=== PATIENT | male | born 1980 | race Caucasian/White ===

== ENCOUNTER 2018-09-03 04:47 | Inpatient (IN) | payer OTHER ==
--- NOTE | 2018-09-03 05:13 | PDOC ---
History of Present Illness - History of Present Illness Initial Comments: 09/03/18 05:26 The patient is a 38 year old male with no significant PMH who presents for evaluation of fevers and cough. The patient reports a 5 day history of subjective fevers with a non-productive cough associated with dizziness. He notes that his symptoms have been improving, but persistent prompting his presentation to the ED for further evaluation. He also reports some mild intermittent left sided chest pain that occurs with his cough as well. He notes that he has had similar symptoms in the past and had been diagnosed with bronchitis at that time. He otherwise denies nausea, vomiting, abdominal pain, or changes with urination or bowel movements. <Jacob Hadley - Last Filed: 09/03/18 06:52> <Abdirashid Gleason - Last Filed: 09/03/18 09:05> - General Stated Complaint: FEVER,PAIN,DIZZINESS Time Seen by Provider: 09/03/18 05:12 Past History - Past Medical History COPD: No DVT: No Diabetes: No HTN: No Hypercholesterolemia: No - Immunization History Immunization Up to Date: No - Suicide/Smoking/Psychosocial Hx Smoking Status: No Smoking History: Current some day smoker Number of Cigarettes Smoked Daily: 0 'Breaking Loose' booklet given: 10/11/13 Hx Alcohol Use: No Drug/Substance Use Hx: No <Jacob Hadley - Last Filed: 09/03/18 06:52> <Abdirashid Gleason - Last Filed: 09/03/18 09:05> - Past Medical History Allergies/Adverse Reactions: Allergies Allergy/AdvReac Type Severity Reaction Status Date / Time No Known Allergies Allergy Verified 09/03/18 05:27 Home Medications: Ambulatory Orders No Home Medications 0 dose .ROUTE UTDICT 09/11/12 Sulfamethoxazole/Trimethoprim [Bactrim *Ds*] 1 tab PO BID #14 tablet 07/11/16 predniSONE [Deltasone -] 40 mg PO DAILY #14 tablet 07/11/16 Review of Systems - Review of Systems Comments:: 09/03/18 05:29 Constitutional: Fevers, chills, No fatigue, malaise HEENT: No Rhinorrhea, nasal congestion, visual changes Cardiovascular: Chest pain. No syncope, palpitations, lightheadedness Respiratory: Cough. No SOB, Hemoptysis, Gastrointestinal: No Abdominal pain, Nausea, Vomiting, Constipation, Diarrhea, Melena Genitourinary: No Dysuria, Frequency, Urgency, Hesitancy, Hematuria, Flank pain Musculoskeletal: No Myalgia, arthralgia Skin: No rashes, itching, bruising, pallor Neurologic: No Headache, Dizziness, Numbness, Weakness, or Tingling Psychiatric: No Hallucinations. No SI or HI <Jacob Hadley - Last Filed: 09/03/18 06:52> *Physical Exam - Physical Exam Comments: 09/03/18 05:30 General Appearance: Nourished. No Apparent Distress HEENT: No Pharyngeal Erythema, Tonsillar Exudate, Tonsillar Erythema Neck: No Cervical Lymphadenopathy Respiratory/Chest: Lungs Clear, Normal Breath Sounds. No Crackles, Rales, Rhonchi, Wheezing Cardiovascular: Regular Rhythm, Regular Rate. No Murmur, Gallops, Rubs Gastrointestinal/Abdominal: Normal Bowel Sounds, Soft. No Guarding, Rebound, Tenderness Musculoskeletal: No CVA Tenderness Extremity: Normal Capillary Refill Integumentary: Normal Color, Dry, Warm Neurologic: Fully Oriented, Alert, Normal Mood/Affect, Normal Response, <Jacob Hadley - Last Filed: 09/03/18 06:52> - Vital Signs Last Vital Signs Temp Pulse Resp BP Pulse Ox 99.2 F 112 H 19 103/76 09/03/18 05:00 09/03/18 05:00 09/03/18 05:00 09/03/18 05:00 <Abdirashid Gleason - Last Filed: 09/03/18 09:05> ED Treatment Course - LABORATORY CBC & Chemistry Diagram: 09/03/18 05:39 09/03/18 05:39 <Jacob Hadley - Last Filed: 09/03/18 06:52> - LABORATORY CBC & Chemistry Diagram: 09/03/18 05:39 09/03/18 05:39 - ADDITIONAL ORDERS Additional order review: Laboratory Results 09/03/18 05:39 Sodium 134 L Potassium 3.5 Chloride 101 Carbon Dioxide 23 Anion Gap 10 BUN 19 H Creatinine 1.3 Creat Clearance w eGFR > 60 Random Glucose 127 H Calcium 8.3 L Total Bilirubin 1.3 H AST 68 H ALT 80 H Alkaline Phosphatase 182 H Creatine Kinase 261 Creatine Kinase Index 0.3 CK-MB (CK-2) < 1.0 Troponin I 0.13 H Total Protein 7.0 Albumin 3.1 L Lipase 492 H 09/03/18 05:39 RBC 5.24 MCV 87.8 MCHC 33.6 RDW 13.8 MPV 10.8 Neutrophils % 79.5 Lymphocytes % 9.4 Monocytes % 10.6 H Eosinophils % 0.1 Basophils % 0.4 - Medications Given in the ED: ED Medications Discontinued Medications Generic Name Dose Route Start Last Admin Trade Name Freq PRN Reason Stop Dose Admin Sodium Chloride 1,000 mls @ 1,000 mls/hr 09/03/18 05:37 09/03/18 06:16 Normal Saline - IV 09/03/18 06:36 1,000 mls/hr ASDIR STA Administration Ibuprofen 800 mg 09/03/18 05:21 09/03/18 06:16 Motrin - PO 09/03/18 05:22 800 mg ONCE ONE Administration <Abdirashid Gleason - Last Filed: 09/03/18 09:05> Medical Decision Making - Medical Decision Making 09/03/18 05:31 The patient is a 38 year old male with no significant PMH who presents for evaluation of fevers and cough. Given the patient's history and physical exam, we will obtain a chest plain film to evaluate further for infectious etiologies. We will also obtain a cbc, cmp, troponin, lipase, and ekg to evaluate further. We will treat the patient with ibuprofen and iv fluids and continue to monitor and reassess while here in the ED. 09/03/18 06:51 CBC demonstrates an elevated wbc to 13. CMP demonstrates elevated LFTs and t.bili. We will obtain a gallbladder US to evaluate further and continue to monitor and reassess. 09/03/18 06:59 Patient signed out to the day team pending troponin, lipase, chest plain film, ekg, and gallbladder US. <Jacob Hadley - Last Filed: 09/03/18 06:52> *DC/Admit/Observation/Transfer <Jacob Hadley - Last Filed: 09/03/18 06:52> - Discharge Dispostion Decision to Admit order: Yes <Abdirashid Gleason - Last Filed: 09/03/18 09:05> Diagnosis at time of Disposition: Abnormal LFTs Pneumonia Qualifiers: Pneumonia type: due to unspecified organism Laterality: left Lung location: upper lobe of lung Qualified Code(s): J18.1 - Lobar pneumonia, unspecified organism - Discharge Dispostion Condition at time of disposition: Fair - Referrals Referrals: Omar Cramer MD [Primary Care Provider] - - Patient Instructions - Post Discharge Activity
[2018-09-03] MEDS ORDERED: IBUPROFEN 400 MG TABLET (FP) PO ONE ×2 (05:21→06:12)
[2018-09-03] MEDS ORDERED: SODIUM CHLORIDE 1,000 ML IV STA (05:37)
[2018-09-03 05:53] LABS: BASO % 0.4 % (0-2.0); EOS % 0.1 % (0-4.5); RBC 5.24 M/mm3 (4.00-5.60); RDW 13.8 % (11.9-15.9)
[2018-09-03 06:03] LABS: HEMOGLOBIN 15.5 GM/dL (11.7-16.9); LYMPH % 9.4 % (8-40); MCH 29.5 pg (25.7-33.7); MCHC 33.6 g/dl (32.0-35.9); MEAN CELL VOLUME 87.8 fl (80-96); MEAN PLT VOLUME 10.8 fl (7.5-11.1); MONO % 10.6 % (3.8-10.2); NEUT % 79.5 % (42.8-82.8); PLATELET COUNT 126 K/MM3 (134-434); WHITE BLOOD COUNT 13.7 K/mm3 (4.0-10.0)
[2018-09-03 06:16] LABS: ALBUMIN 3.1 g/dl (3.4-5.0); ALK PHOS 182 U/L (45-117); ANION GAP 10 MMOL/L (8-16); BILIRUBIN,TOTAL 1.3 mg/dL (0.2-1); BLOOD UREA NITROGEN 19 mg/dL (7-18); CALCIUM 8.3 mg/dL (8.5-10.1); CHLORIDE 101 mmol/L (98-107); CO2 23 mmol/L (21-32); CREATININE 1.3 mg/dL (0.55-1.3); GLUCOSE,RANDOM 127 mg/dL (74-106); POTASSIUM 3.5 mmol/L (3.5-5.1); SGOT/AST 68 U/L (15-37); SGPT/ALT 80 U/L (13-61); SODIUM 134 mmol/L (136-145)
--- NOTE | 2018-09-03 06:42 | PDOC ---
Attending Attestation - Resident Resident Name: Jacob Hadley - ED Attending Attestation I have performed the following: I have examined & evaluated the patient, The case was reviewed & discussed with the resident, I agree w/resident's findings & plan, Exceptions are as noted - HPI HPI: 09/03/18 06:35 The patient is a 38 year old male, with no significant past medical history, who presents to the emergency department with 5 days of nonproductive cough and subjective fevers. The patient also endorses intermittent left sided chest pain when coughing. Denies SOB. Pt endorses intermittent LUQ pain but denies any currently. He denies any recent nausea, vomit, diarrhea or constipation. He denies any recent dysuria, frequency, urgency or hematuria. Allergies: NKDA Past surgical history: None reported. Primary Care Physician: - Physicial Exam PE: 09/03/18 06:42 "GENERAL: Awake, alert, and fully oriented, in no acute distress. HEAD: No signs of trauma EYES: PERRLA, EOMI, sclera anicteric, conjunctiva clear ENT: Auricles normal inspection, hearing grossly normal, nares patent, oropharynx clear without exudates. Moist mucosa NECK: Nontender, no stepoffs, Normal ROM, supple, no lymphadenopathy, JVD, or masses LUNGS: Breath sounds equal, clear to auscultation bilaterally. No wheezes, and no crackles HEART: Regular rate and rhythm, normal S1 and S2, no murmurs, rubs or gallops ABDOMEN: Soft, nontender, normoactive bowel sounds. No guarding, no rebound. No masses EXTREMITIES: Normal range of motion, no edema. No clubbing or cyanosis. No cords, erythema, or tenderness NEUROLOGICAL: Cranial nerves II through XII intact. 5/5 strength and sensation in all extremities, Normal speech, normal gait, normal cerebellar function SKIN: Warm, Dry, normal turgor, no rashes or lesions noted. - Medical Decision Making 09/03/18 06:43 38 M with fever, cough, and L sided chest pain. Likely viral URI vs PNA. - Labs, trop - EKG - CXR 09/03/18 06:52 Labs notable for mild transaminitis Will obtain RUQ sono 09/03/18 07:36 Pt signed out to oncoming team, pending US, labs, and re-evaluation
[2018-09-03 07:30] LABS: LIPASE 492 U/L (73-393)
[2018-09-03] MEDS ORDERED: SODIUM CHLORIDE 500 ML IV STA (08:22)
--- NOTE | 2018-09-03 12:03 | PN ---
Progress Note (short form) - Note Progress Note: ID Consult dictated JESSE community acquired vs. atypical pneumonia Elevated LFTs Hyponatremia Elevated lipase Obtain cultures, legionella ag Empiric levaquin 750mg q 24h Declines HIV testing
--- NOTE | 2018-09-03 12:45 | CONS ---
DATE OF CONSULTATION: DATE OF DICTATION: 09/03/2018 HISTORY OF PRESENT ILLNESS: The patient is a 38-year-old healthy male who was evaluated for left upper lobe pneumonia. The patient states he was well until Wednesday, August 29, 2018 when he developed the onset of fever, chills, a cough productive of yellowish sputum, left-sided pleuritic-type chest pain and epigastric pain. He presented to the emergency room where a chest x-ray showed a left upper lobe infiltrate. He was empirically treated with Levaquin. No blood cultures were obtained. The patient denies any ill contacts. He lives at home with his and children, who are all well. No one has a respiratory tract illness. 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 He denies any recent travel or antibiotic therapy. He smokes a hookah. He denies illicit drug use or risk factors for HIV. His status is not known. He has not received influenza or pneumococcal vaccines. PAST MEDICAL HISTORY: Negative. ALLERGIES: No known allergies. MEDICATIONS: None. LABORATORY DATA: White count 13.7, BUN 19, creatinine 1.3, sodium 134, total bilirubin 1.3, alkaline phosphatase 182, AST 68. His lipase is 492. A chest x-ray shows left upper lobe infiltrate. PHYSICAL EXAMINATION: General: The patient is awake and alert. He is not acutely toxic appearing. No acute respiratory distress. Vital Signs: Temperature 97.5, T-max 99.2, blood pressure 103/67, pulse 87 and regular, respirations 18 per minute. HEENT:: Sclerae anicteric. Oropharynx shows no injection or exudate. Neck: Supple. No palpable nodes. Heart: Heart sounds S1, S2. Lungs: A few crepitations in the left mid-lung field. Abdomen: Soft. No tenderness is elicited. Extremities: Negative for edema. Skin: No rashes noted. IMPRESSION: 1. Left upper lobe community-acquired vs. atypical pneumonia. 2. Elevated liver enzymes. 3. Hyponatremia. 4. Azotemia. PLAN: 1. Obtain blood culture, sputum culture, urine Legionella and pneumococcal antigens. 2. We will continue Levaquin 750 mg IV piggyback every 24 hours. 3. Obtain sonogram of the liver and gallbladder. 4. The patient declines HIV testing. LIYA INIGUEZ M.D. OLIVIER/[id number]
--- NOTE | 2018-09-03 14:50 | EKG ---
Test Reason : Blood Pressure : / mmHG Vent. Rate : 083 BPM Atrial Rate : 083 BPM P-R Int : 142 ms QRS Dur : 092 ms QT Int : 362 ms P-R-T Axes : 053 029 045 degrees QTc Int : 425 ms NORMAL SINUS RHYTHM INCOMPLETE RIGHT BUNDLE BRANCH BLOCK BORDERLINE ECG NO PREVIOUS ECGS AVAILABLE Confirmed by JOVITA TURNER MD ([id number]) on 09/03/2018 2:50:33 PM Referred By: Confirmed By:JOVITA TURNER MD
[2018-09-03 15:54] LABS: URINE APPEARANCE CLEAR; URINE BILIRUBIN NEGATIVE (<2.0 mg/dL); URINE COLOR AMBER; URINE GLUCOSE (UA) NEGATIVE (NEGATIVE); URINE KETONE 1+ (NEGATIVE); URINE LEUK ESTERASE NEGATIVE (NEGATIVE); URINE NITRITE NEGATIVE (NEGATIVE); URINE PROTEIN 1+ (NEGATIVE); URINE UROBILINOGEN 4.0 E.U/dl mg/dL (0.2-1.0)
[2018-09-03 17:01] LABS: EPI CELLS RARE /HPF (FEW); URINE MUCUS RARE
[2018-09-03] MEDS ORDERED: ACETAMINOPHEN 325 MG TABLET (FP) PO PRN ×2 (17:13)
[2018-09-03] MEDS ORDERED: ALBUTEROL SO4 2.5/IPRATROPIUM 0.5 INH SOL 3 ML VIAL.NEB. NEB PRN (17:23)
--- NOTE | 2018-09-03 17:25 | HP ---
Admitting History and Physical - Admission Chief Complaint: SOB. COUGH History of Present Illness: The patient is a 38 year old male with no significant PMH who presents for evaluation of fevers and cough. The patient reports a 5 day history of subjective fevers with a non-productive cough associated with dizziness. He notes that his symptoms have been improving, but persistent prompting his presentation to the ED for further evaluation. He also reports some mild intermittent left sided chest pain that occurs with his cough as well. He notes that he has had similar symptoms in the past and had been diagnosed with bronchitis at that time. He otherwise denies nausea, vomiting, abdominal pain, or changes with urination or bowel movements. History Source: Patient, Medical Record Limitations to Obtaining History: No Limitations - Smoking History Smoking history: Current some day smoker Have you smoked in the past 12 months: Yes Aproximately how many cigarettes per day: 0 - Alcohol/Substance Use Hx Alcohol Use: No Home Medications - Allergies Allergies/Adverse Reactions: Allergies Allergy/AdvReac Type Severity Reaction Status Date / Time No Known Allergies Allergy Verified 09/03/18 05:27 - Home Medications Home Medications: Ambulatory Orders NK [No Known Home Medication] 09/03/18 Review of Systems - Review of Systems Constitutional: reports: Chills Eyes: reports: No Symptoms HENT: reports: No Symptoms Neck: reports: No Symptoms Cardiovascular: reports: Shortness of Breath Respiratory: reports: Cough, SOB on Exertion Gastrointestinal: reports: No Symptoms Genitourinary: reports: No Symptoms Breasts: reports: No Symptoms Reported Musculoskeletal: reports: No Symptoms Integumentary: reports: No Symptoms Neurological: reports: No Symptoms Endocrine: reports: No Symptoms Hematology/Lymphatic: reports: No Symptoms Psychiatric: reports: No Symptoms Physical Examination Vital Signs: Vital Signs Temperature 98.7 F 09/03/18 15:44 Pulse Rate 94 H 09/03/18 15:44 Respiratory Rate 20 09/03/18 15:44 Blood Pressure 112/66 09/03/18 15:44 O2 Sat by Pulse Oximetry (%) 96 09/03/18 15:44 Labs: CBC, BMP 09/03/18 05:39 09/03/18 05:39 Imaging - Results Chest X-ray: Report Reviewed Problem List - Problems (1) Elevated troponin Assessment/Plan: -repeat trend -EKG-RBBB -Tele monitoring -Cardiology consult -Pt asymptomatic at this time -Cardiac history unknown Code(s): R74.8 - ABNORMAL LEVELS OF OTHER SERUM ENZYMES (2) Abnormal LFTs Assessment/Plan: -GI consult -Viral exposure? -Hepatitis profile ordered -Follow trend -U/D abdomen unremarkable Code(s): R94.5 - ABNORMAL RESULTS OF LIVER FUNCTION STUDIES (3) Pneumonia Assessment/Plan: -ID consult -Levaquin 750 mg IVPB daily -afebrile -Nasal O2 PRN, keep Spo2 >90% -Bronchodilators PRN for SOB Code(s): J18.9 - PNEUMONIA, UNSPECIFIED ORGANISM Qualifiers: Pneumonia type: due to unspecified organism Laterality: left Lung location: upper lobe of lung Qualified Code(s): J18.1 - Lobar pneumonia, unspecified organism (4) Elevated lipase Assessment/Plan: -repeat labs in AM -US abd unremarkable -GI consult Code(s): R74.8 - ABNORMAL LEVELS OF OTHER SERUM ENZYMES Assessment/Plan see problem list DVT prophylaxis self ambulatory
[2018-09-03 19:05] VITALS: BMI 28.0
[2018-09-03] MEDS ORDERED: FLU VACCINE QUAD 60 MCG/0.5 ML (MDV 18-19) IM ONE (19:05)
[2018-09-03] MEDS: SODIUM CHLORIDE 1,000 ML IV SCH (22:40)
[2018-09-04 06:43] LABS: BASO % 0.4 % (0-2.0); EOS % 0.5 % (0-4.5); HEMATOCRIT 42.6 % (35.4-49); HEMOGLOBIN 13.9 GM/dL (11.7-16.9); MCH 29.1 pg (25.7-33.7); MCHC 32.7 g/dl (32.0-35.9); MEAN CELL VOLUME 89.2 fl (80-96); MEAN PLT VOLUME 10.7 fl (7.5-11.1); MONO % 10.9 % (3.8-10.2); NEUT % 68.2 % (42.8-82.8); PLATELET COUNT 117 K/MM3 (134-434); RBC 4.78 M/mm3 (4.00-5.60); WHITE BLOOD COUNT 9.5 K/mm3 (4.0-10.0)
[2018-09-04 06:48] LABS: AMYLASE 61 U/L (25-115); ANION GAP 8 MMOL/L (8-16); BLOOD UREA NITROGEN 12 mg/dL (7-18); CALCIUM 8.2 mg/dL (8.5-10.1); CHLORIDE 108 mmol/L (98-107); CO2 24 mmol/L (21-32); CREATININE 0.9 mg/dL (0.55-1.3); GLUCOSE,RANDOM 80 mg/dL (74-106); LIPASE 361 U/L (73-393); POTASSIUM 3.9 mmol/L (3.5-5.1); SODIUM 140 mmol/L (136-145)
--- NOTE | 2018-09-04 08:40 | CON.GI ---
Consult Consult Specialty:: GI Referred by:: Caitlyn Ortiz NP Reason for Consultation:: Abnormal LFTs - History of Present Illness Chief Complaint: Chest pain, back pain, fever History of Present Illness: 38M admitted for evaluation of a few days of chest pain, cough, fevers and lower back pain. He has a JESSE infiltrate and is being treated for PNA. Asked to evaluate abnormal LFTs. He was also noted to have elevated troponins and initial lipase was elevated to 428. It is unclear why a lipase was drawn as he denies any abdominal pain. He denies known liver disease, family history of liver disease or autoimmune disease. He denies sexual promiscuity and states being in a monogamous relationship with his . He denies recent travel or sick contact. He denies the use of any recent OTC medications including APAP and denies herbal supplementation. He denies IVDA. He denies any change in bowel habits. ABD US revealed a partially contrasted thick walled gallbladder without evidence of gallstones. The biliary tract was non-dilated. He complains of pain along the left lower ribs over the last 2 years. - History Source History Provided By: Patient, Medical Record Limitations to Obtaining History: No Limitations - Past Medical History Additional Medical History: Denies - Past Surgical History Additional Surgical History: Denies - Alcohol/Substance Use Hx Alcohol Use: No History of Substance Use: reports: None - Smoking History Smoking history: Current some day smoker (Hookah and occasional cigarettes) Have you smoked in the past 12 months: No Aproximately how many cigarettes per day: 0 - Social History Usual Living Arrangement: With Spouse ADL: Independent Occupation: Works in [employer] Place of : Other ([place]) Came to [place]year[place] 2000 History of Recent Travel: No Home Medications - Allergies Allergies/Adverse Reactions: Allergies Allergy/AdvReac Type Severity Reaction Status Date / Time No Known Allergies Allergy Verified 09/03/18 05:27 - Home Medications Home Medications: Ambulatory Orders NK [No Known Home Medication] 09/03/18 Family Disease History - Family Disease History Family Disease History: Other: Father (Alive, healthy), Mother (Alive, healthy) , Brother (4, healthy), Sister (3, healthy), Son (1, healthy), Daughter (1, healthy) Other Family History: No family history of colorectal cancer or other GI malignancy. No family history of liver disease Review of Systems - Review of Systems Constitutional: denies: Unintentional Wgt. Loss Cardiovascular: reports: Chest Pain Respiratory: reports: Cough, SOB Gastrointestinal: denies: Abdominal Pain, Diarrhea, Melena, Nausea, Rectal Bleeding, Vomiting Musculoskeletal: reports: Back Pain (lower back) Physical Exam-GI Vital Signs: Vital Signs Temperature 97.8 F 09/04/18 05:30 Pulse Rate 78 09/04/18 05:30 Respiratory Rate 16 09/04/18 05:30 Blood Pressure 116/48 L 09/04/18 05:30 O2 Sat by Pulse Oximetry (%) 96 09/03/18 21:00 Constitutional: Yes: Calm Eyes: No: Sclera Icterus Cardiovascular: Yes: Regular Rate and Rhythm. No: Murmur Respiratory: Yes: Rhonchi (left upper lung field) Gastrointestinal Inspection: No: Distention, Scars ...Auscultate: Yes: Normoactive Bowel Sounds ...Palpate: Yes: Soft. No: Hepatomegaly, Splenomegaly, Tenderness Edema: No (No LE edema) Neurological: Yes: Alert (awake) Labs: CBC, BMP 09/04/18 05:30 09/04/18 05:30 Hepatic Panel Total Bilirubin 1.3 mg/dL (0.2-1) H 09/03/18 05:39 AST 68 U/L (15-37) H 09/03/18 05:39 ALT 80 U/L (13-61) H 09/03/18 05:39 Alkaline Phosphatase 182 U/L (45-117) H 09/03/18 05:39 Albumin 3.1 g/dl (3.4-5.0) L 09/03/18 05:39 Laboratory Tests 09/03/18 09/04/18 05:39 05:30 Total Amylase 61 Lipase 492 H 361 Imaging - Results Ultrasound: Report Reviewed Problem List - Problems (1) Abnormal LFTs Assessment/Plan: Mixed hepatocelluar/cholestatic dysfunction. I suspect that the liver chemistry abnormalities will be reflective of a systemic process such as ongoing PNA as opposed to primary hepatic dysfunction. He is being evaluated by ID and as part of the work-up for Mr. Henson's PNA, Legionella studies have been recommended. Advise: Hepatitis B core IgM and e antigen are pending? Can check chronic hepatitis serologies as well to assess for cause for baseline liver dysfunction. No bllod workj for comparison MRI/MRCP of the abdomen Monitor liver chemistries Avoid hepatotoxic agents ID following Code(s): R94.5 - ABNORMAL RESULTS OF LIVER FUNCTION STUDIES
--- NOTE | 2018-09-04 09:05 | CON.CARD ---
Consult Consult Specialty:: Cardiology Referred by:: Caitlyn Ortiz NP Reason for Consultation:: Demand ischemia - History of Present Illness Chief Complaint: Dyspnea, cough, fever History of Present Illness: The patient is a 38 year old male with no significant PMH who presents for chest pain, cough, fevers and lower back pain. He also reports some mild intermittent left-sided chest pain that occurs with his cough as well. He has a JESSE infiltrate and is being treated for PNA, noted to have slightly elevated troponins and leukocytosis since improving, reports post-tussive light- headedness, but denies syncope, palpitations, orthopnea, PND, LE edema. - History Source History Provided By: Patient Limitations to Obtaining History: No Limitations - Past Medical History Additional Medical History: Denies - Past Surgical History Additional Surgical History: Denies - Alcohol/Substance Use Hx Alcohol Use: No History of Substance Use: reports: None - Smoking History Smoking history: Current some day smoker (Hookah and occasional cigarettes) Have you smoked in the past 12 months: No Aproximately how many cigarettes per day: 0 - Social History Usual Living Arrangement: With Spouse ADL: Independent Occupation: Works in [employer] History of Recent Travel: No Home Medications - Allergies Allergies/Adverse Reactions: Allergies Allergy/AdvReac Type Severity Reaction Status Date / Time No Known Allergies Allergy Verified 09/03/18 05:27 - Home Medications Home Medications: Ambulatory Orders NK [No Known Home Medication] 09/03/18 Family Disease History - Family Disease History Family History: Unremarkable Family Disease History: Other: Father (Alive, healthy), Mother (Alive, healthy) , Brother (4, healthy), Sister (3, healthy), Son (1, healthy), Daughter (1, healthy) Other Family History: No family history of colorectal cancer or other GI malignancy. No family history of liver disease Review of Systems - Review of Systems Constitutional: reports: Fever Eyes: reports: No Symptoms HENT: reports: No Symptoms Neck: reports: No Symptoms Cardiovascular: reports: Chest Pain Respiratory: reports: Cough, SOB Gastrointestinal: reports: No Symptoms Genitourinary: reports: No Symptoms Musculoskeletal: reports: No Symptoms Integumentary: reports: No Symptoms Neurological: reports: No Symptoms Endocrine: reports: No Symptoms Vital Signs: Vital Signs Temperature 97.8 F 09/04/18 05:30 Pulse Rate 78 09/04/18 05:30 Respiratory Rate 16 10/11/18 05:30 Blood Pressure 116/48 L 09/04/18 05:30 O2 Sat by Pulse Oximetry (%) 96 09/03/18 21:00 Constitutional: Yes: No Distress, Calm Neck: Yes: Supple Respiratory: Yes: Regular, CTA Bilaterally, Diminished, On Nasal O2 Gastrointestinal: Yes: Normal Bowel Sounds, Soft Cardiovascular: Yes: Regular Rate and Rhythm JVD: No Carotid Bruit: No Heart Sounds: Yes: S1, S2 Edema: No - Other Data Labs, Other Data: CBC, BMP 09/04/18 05:30 09/04/18 05:30 Troponin, BNP 09/03/18 09/04/18 18:30 05:30 Troponin I 0.09 H 0.04 Troponin, BNP 09/03/18 09/04/18 18:30 05:30 Troponin I 0.09 H 0.04 NSR @ 83 IRBBB Telemetry: ST Echo: Pending Ejection Fraction %: LVEF > or = 40 % Imaging - Results Chest X-ray: Report Reviewed (JESSE infiltrate) Ultrasound: Report Reviewed (No cholelithiasis or cholecystitis) Problem List - Problems (1) Demand ischemia Code(s): I24.8 - OTHER FORMS OF ACUTE ISCHEMIC HEART DISEASE (2) Hyponatremia Code(s): E87.1 - HYPO-OSMOLALITY AND HYPONATREMIA (3) Abnormal LFTs Code(s): R94.5 - ABNORMAL RESULTS OF LIVER FUNCTION STUDIES (4) Elevated lipase Code(s): R74.8 - ABNORMAL LEVELS OF OTHER SERUM ENZYMES (5) Pneumonia Code(s): J18.9 - PNEUMONIA, UNSPECIFIED ORGANISM Qualifiers: Pneumonia type: due to unspecified organism Laterality: left Lung location: upper lobe of lung Qualified Code(s): J18.1 - Lobar pneumonia, unspecified organism Assessment/Plan 1. JESSE community acquired vs. atypical pneumonia 2. Demand ischemia due to above 3. Elevated LFTs and Elevated lipase due to systemic process 4. Hyponatremia due to pulmonary process P: 1. Trops are downtrending, check echocardiogram to assess ventricular and valve fxn 2. Empiric levaquin 750mg q 24h, f/u cultures, legionella ag 3. D/c telemetry monitoring
[2018-09-04] MEDS: SODIUM CHLORIDE 1,000 ML IV SCH (10:47)
[2018-09-04] MEDS: ENOXAPARIN NA (PORCINE) 40 MG/0.4 ML DISP.SYRIN SQ SCH (10:47)
--- NOTE | 2018-09-04 12:21 | PN ---
Progress Note, Physician Chief Complaint: Pneumonia Elevated Liver enzymes History of Present Illness: NAD, in bed denies any SOB, cough or pain wants to go home - Current Medication List Current Medications: Active Medications Acetaminophen (Tylenol -) 650 mg PO Q4H PRN PRN Reason: FEVER Last Admin: 09/03/18 22:40 Dose: 650 mg Acetaminophen (Tylenol -) 650 mg PO Q4H PRN PRN Reason: PAIN 1-3 Albuterol/Ipratropium (Duoneb -) 1 amp NEB Q6H PRN PRN Reason: SHORTNESS OF BREATH Enoxaparin Sodium (Lovenox -) 40 mg SQ DAILY [facility] Last Admin: 09/04/18 10:47 Dose: 40 mg Levofloxacin (Levaquin 750 Mg Premixed Ivpb -) 750 mg in 150 mls @ 100 mls/hr IVPB DAILY [facility]; Protocol Last Admin: 09/04/18 10:47 Dose: 100 mls/hr Sodium Chloride (Normal Saline -) 1,000 mls @ 75 mls/hr IV ASDIR [facility] Last Admin: 09/04/18 10:47 Dose: 75 mls/hr - Objective Vital Signs: Vital Signs Temperature 97.8 F 09/04/18 05:30 Pulse Rate 78 09/04/18 05:30 Respiratory Rate 16 09/04/18 05:30 Blood Pressure 116/48 L 09/04/18 05:30 O2 Sat by Pulse Oximetry (%) 96 09/04/18 09:00 Constitutional: Yes: Well Nourished, No Distress, Calm Labs: CBC, BMP 09/04/18 05:30 09/04/18 05:30 Problem List - Problems (1) Elevated troponin Assessment/Plan: -trended down to normal -Seen by Cardiology -EKG-RBBB -Tele monitoring -Echo done-unremarkable -Pt asymptomatic at this time Code(s): R74.8 - ABNORMAL LEVELS OF OTHER SERUM ENZYMES (2) Abnormal LFTs Assessment/Plan: -trending down -Seen by GI -Viral exposure? -Hepatitis profile pending -U/D abdomen unremarkable -MRCP pending Code(s): R94.5 - ABNORMAL RESULTS OF LIVER FUNCTION STUDIES (3) Pneumonia Assessment/Plan: -ID consult -Levaquin 750 mg IVPB daily -afebrile -Nasal O2 PRN, keep Spo2 >90% -Bronchodilators PRN for SOB -Monoscreen negative -labs in AM Code(s): J18.9 - PNEUMONIA, UNSPECIFIED ORGANISM Qualifiers: Pneumonia type: due to unspecified organism Laterality: left Lung location: upper lobe of lung Qualified Code(s): J18.1 - Lobar pneumonia, unspecified organism (4) Elevated lipase Assessment/Plan: -repeat labs in AM -US abd unremarkable -GI consult -MRCP pending Code(s): R74.8 - ABNORMAL LEVELS OF OTHER SERUM ENZYMES Assessment/Plan see problem list DVT prophylaxis self ambulatory
--- NOTE | 2018-09-04 12:41 | ECHO ---
Name: THUY, SANDOVAL Exam:Adult Echocardiogram Study Date: 09/04/2018 10:51 AM Age: 38 yrs Reason For Study: ischemia Height: 74 in Weight: 218 lb BSA: 2.3 m2 MMode/2D Measurements & Calculations IVSd: 1.2 cm Ao root diam: 3.0 cm LVIDd: 2.9 cm LVIDs: 1.8 cm LVPWd: 1.0 cm EDV(Teich): 31.7 ml LVOT diam: 2.2 cm ESV(Teich): 9.5 ml Doppler Measurements & Calculations Med Peak E' Kevin: 10.3 cm/sec Lat Peak E' Kevin: 16.7 cm/sec Procedure A complete two-dimensional transthoracic echocardiogram was performed (2D, M-mode, Doppler and color flow Doppler). Left Ventricle The left ventricular size, thickness and function are normal. The left ventricular ejection fraction is normal. Ejection Fraction = 55-60%. The left ventricular wall motion is normal. Right Ventricle The right ventricle is normal in size and function. Atria Normal left and right atrial size and function. Mitral Valve There is no mitral regurgitation noted. Tricuspid Valve There is trace tricuspid regurgitation. There was insufficient TR detected to calculate RV systolic p ressure. Aortic Valve No hemodynamically significant valvular aortic stenosis. No aortic regurgitation is present. Pulmonic Valve There is no pulmonic valvular regurgitation. Great Vessels The aortic root is normal size. Pericardium/Pleura There is no pericardial effusion. Interpretation Summary The left ventricular size, thickness and function are normal. The right ventricle is normal in size and function. There is trace tricuspid regurgitation. MD Mario Lamas 09/04/2018 12:40 PM
[2018-09-04 12:53] LABS: ALBUMIN 2.6 g/dl (3.4-5.0); ALK PHOS 153 U/L (45-117); BILIRUBIN,DIRECT 0.4 mg/dL (0.0-0.2); BILIRUBIN,TOTAL 0.7 mg/dL (0.2-1); SGOT/AST 31 U/L (15-37); SGPT/ALT 62 U/L (13-61)
--- NOTE | 2018-09-04 18:19 | PN ---
Progress Note, Physician History of Present Illness: Feeling slightly better Still with cough Pleuritic chest pain - Current Medication List Current Medications: Active Medications Acetaminophen (Tylenol -) 650 mg PO Q4H PRN PRN Reason: FEVER Last Admin: 09/03/18 22:40 Dose: 650 mg Acetaminophen (Tylenol -) 650 mg PO Q4H PRN PRN Reason: PAIN 1-3 Albuterol/Ipratropium (Duoneb -) 1 amp NEB Q6H PRN PRN Reason: SHORTNESS OF BREATH Enoxaparin Sodium (Lovenox -) 40 mg SQ DAILY [facility] Last Admin: 09/04/18 10:47 Dose: 40 mg Levofloxacin (Levaquin 750 Mg Premixed Ivpb -) 750 mg in 150 mls @ 100 mls/hr IVPB DAILY [facility]; Protocol Last Admin: 09/04/18 10:47 Dose: 100 mls/hr Sodium Chloride (Normal Saline -) 1,000 mls @ 75 mls/hr IV ASDIR [facility] Last Admin: 09/04/18 10:47 Dose: 75 mls/hr - Objective Vital Signs: Vital Signs Temperature 98 F 09/04/18 14:20 Pulse Rate 81 09/04/18 14:20 Respiratory Rate 18 09/04/18 14:20 Blood Pressure 92/67 09/04/18 14:20 O2 Sat by Pulse Oximetry (%) 96 09/04/18 09:00 Cardiovascular: Yes: Regular Rate and Rhythm, S1, S2 Respiratory: Yes: Other (crepitations L lung field) Gastrointestinal: Yes: Normal Bowel Sounds, Soft Edema: No Labs: CBC, BMP 09/04/18 05:30 09/04/18 05:30 Assessment/Plan JESSE community acquired v. atypical pneumonia Continue empiric levaquin
[2018-09-05 06:06] LABS: HEPATITIS B CORE ANTIBODY,IGM Negative (Negative)
[2018-09-05 06:41] LABS: INR 1.39 (0.83-1.09); PROTHROMBIN TIME (PATIENT) 16.5 SEC (9.7-13.0)
[2018-09-05 07:03] LABS: ALBUMIN 2.6 g/dl (3.4-5.0); BILIRUBIN,DIRECT 0.3 mg/dL (0.0-0.2); BILIRUBIN,TOTAL 0.6 mg/dL (0.2-1); TOT PROT 6.2 g/dl (6.4-8.2)
--- NOTE | 2018-09-05 09:49 | PN ---
Progress Note, Physician History of Present Illness: Cough and pleurisy improving, remains afebrile. - Current Medication List Current Medications: Active Medications Acetaminophen (Tylenol -) 650 mg PO Q4H PRN PRN Reason: FEVER Last Admin: 09/03/18 22:40 Dose: 650 mg Acetaminophen (Tylenol -) 650 mg PO Q4H PRN PRN Reason: PAIN 1-3 Albuterol/Ipratropium (Duoneb -) 1 amp NEB Q6H PRN PRN Reason: SHORTNESS OF BREATH Enoxaparin Sodium (Lovenox -) 40 mg SQ DAILY [facility] Last Admin: 09/04/18 10:47 Dose: 40 mg Levofloxacin (Levaquin 750 Mg Premixed Ivpb -) 750 mg in 150 mls @ 100 mls/hr IVPB DAILY [facility]; Protocol Last Admin: 09/04/18 10:47 Dose: 100 mls/hr Sodium Chloride (Normal Saline -) 1,000 mls @ 75 mls/hr IV ASDIR [facility] Last Admin: 09/04/18 10:47 Dose: 75 mls/hr - Objective Vital Signs: Vital Signs Temperature 98.0 F 09/05/18 06:00 Pulse Rate 80 09/05/18 06:00 Respiratory Rate 20 09/05/18 06:00 Blood Pressure 114/69 09/05/18 06:00 O2 Sat by Pulse Oximetry (%) 97 09/04/18 20:42 Constitutional: Yes: No Distress, Calm Neck: Yes: Supple Cardiovascular: Yes: Regular Rate and Rhythm Respiratory: Yes: Regular, CTA Bilaterally Gastrointestinal: Yes: Normal Bowel Sounds, Soft Edema: No Labs: CBC, BMP 09/04/18 05:30 09/04/18 05:30 INR, PTT INR 1.39 (0.83-1.09) H 09/05/18 05:30 - ....Imaging EKG: Report Reviewed (Tele: NSR) Problem List - Problems (1) Demand ischemia Code(s): I24.8 - OTHER FORMS OF ACUTE ISCHEMIC HEART DISEASE (2) Abnormal LFTs Code(s): R94.5 - ABNORMAL RESULTS OF LIVER FUNCTION STUDIES (3) Elevated lipase Code(s): R74.8 - ABNORMAL LEVELS OF OTHER SERUM ENZYMES (4) Pneumonia Code(s): J18.9 - PNEUMONIA, UNSPECIFIED ORGANISM Qualifiers: Pneumonia type: due to unspecified organism Laterality: left Lung location: upper lobe of lung Qualified Code(s): J18.1 - Lobar pneumonia, unspecified organism Assessment/Plan 09/04/2018 Echocardiogram: Normal biventricular size and fxn, tr TR 1. JESSE community acquired vs. atypical pneumonia improving 2. Demand ischemia due to above 3. Elevated LFTs and Elevated lipase due to systemic process 4. Hyponatremia due to pulmonary process P: 1. Trops are downtrending 2. Complete empiric levaquin 750mg q 24h, f/u cultures, legionella ag negative 3. D/c planning
[2018-09-05] MEDS: ENOXAPARIN NA (PORCINE) 40 MG/0.4 ML DISP.SYRIN SQ SCH (10:11)
--- NOTE | 2018-09-05 10:44 | PN ---
GI Progress Note Subjective: No acute events No abdominal pain States feeling well - Objective Vital Signs: Vital Signs Temperature 98.0 F 09/05/18 06:00 Pulse Rate 80 09/05/18 06:00 Respiratory Rate 20 09/05/18 06:00 Blood Pressure 114/69 09/05/18 06:00 O2 Sat by Pulse Oximetry (%) 97 09/04/18 20:42 Constitutional: Calm Eyes: No: Sclera Icterus Cardiovascular: Yes: Regular Rate and Rhythm Respiratory: Yes: CTA Bilaterally Gastrointestinal Inspection: No: Distention ...Auscultate: Yes: Normoactive Bowel Sounds ...Palpate: No: Hepatomegaly, Splenomegaly, Tenderness Edema: No (No LE edema) Neurological: Yes: Alert Labs: CBC, BMP 09/04/18 05:30 09/04/18 05:30 INR, PTT INR 1.39 (0.83-1.09) H 09/05/18 05:30 Laboratory Tests 09/04/18 09/05/18 13:01 05:30 Hepatitis A Ab Total Pending Hep Bs Antigen Pending Hep Bs Antibody Pending Hep B Core Total Ab Pending Hep C Ab Diagnostic Pending Monoscreen Negative Problem List - Problems (1) Abnormal LFTs Assessment/Plan: Suspected to be reactive in nature Clinically asymptomatic Await MRI Hepatitis serologies pending ID following Avoid hepatotoxic agents Code(s): R94.5 - ABNORMAL RESULTS OF LIVER FUNCTION STUDIES
--- NOTE | 2018-09-05 11:54 | PN ---
Progress Note, Physician Chief Complaint: Pneumonia Elevated Liver enzymes History of Present Illness: NAD, in bed denies any SOB, cough or pain wants to go home Had MRCP-results pending - Current Medication List Current Medications: Active Medications Acetaminophen (Tylenol -) 650 mg PO Q4H PRN PRN Reason: FEVER Last Admin: 09/03/18 22:40 Dose: 650 mg Acetaminophen (Tylenol -) 650 mg PO Q4H PRN PRN Reason: PAIN 1-3 Albuterol/Ipratropium (Duoneb -) 1 amp NEB Q6H PRN PRN Reason: SHORTNESS OF BREATH Enoxaparin Sodium (Lovenox -) 40 mg SQ DAILY [facility] Last Admin: 09/05/18 10:11 Dose: 40 mg Levofloxacin (Levaquin 750 Mg Premixed Ivpb -) 750 mg in 150 mls @ 100 mls/hr IVPB DAILY [facility]; Protocol Last Admin: 09/05/18 10:11 Dose: 100 mls/hr Sodium Chloride (Normal Saline -) 1,000 mls @ 75 mls/hr IV ASDIR [facility] Last Admin: 09/04/18 10:47 Dose: 75 mls/hr - Objective Vital Signs: Vital Signs Temperature 98.0 F 09/05/18 06:00 Pulse Rate 76 09/05/18 11:13 Respiratory Rate 20 09/05/18 11:13 Blood Pressure 126/72 09/05/18 11:13 O2 Sat by Pulse Oximetry (%) 97 09/05/18 09:00 Constitutional: Yes: Well Nourished, No Distress, Calm Cardiovascular: Yes: Regular Rate and Rhythm Respiratory: Yes: Regular Gastrointestinal: Yes: Normal Bowel Sounds, Soft Musculoskeletal: Yes: WNL Extremities: Yes: WNL Edema: No Peripheral Pulses WNL: Yes Neurological: Yes: Alert, Oriented Psychiatric: Yes: Alert, Oriented Labs: CBC, BMP 09/04/18 05:30 09/04/18 05:30 INR, PTT INR 1.39 (0.83-1.09) H 09/05/18 05:30 Problem List - Problems (1) Elevated troponin Assessment/Plan: -trended down to normal -Seen by Cardiology -EKG-RBBB -Tele monitoring -Echo done-unremarkable -Pt asymptomatic at this time Code(s): R74.8 - ABNORMAL LEVELS OF OTHER SERUM ENZYMES (2) Abnormal LFTs Assessment/Plan: -same -Seen by GI -Viral exposure? -Hepatitis profile pending -U/D abdomen unremarkable -MRCP results pending Code(s): R94.5 - ABNORMAL RESULTS OF LIVER FUNCTION STUDIES (3) Pneumonia Assessment/Plan: -ID consult -Levaquin 750 mg IVPB daily -afebrile -Nasal O2 PRN, keep Spo2 >90% -Bronchodilators PRN for SOB -Monoscreen negative -labs in AM Code(s): J18.9 - PNEUMONIA, UNSPECIFIED ORGANISM Qualifiers: Pneumonia type: due to unspecified organism Laterality: left Lung location: upper lobe of lung Qualified Code(s): J18.1 - Lobar pneumonia, unspecified organism (4) Elevated lipase Assessment/Plan: -resolved -US abd unremarkable -GI consult -MRCP results pending Code(s): R74.8 - ABNORMAL LEVELS OF OTHER SERUM ENZYMES Assessment/Plan see problem list DVT prophylaxis self ambulatory
[2018-09-05 14:19] VITALS: BP 109/74; PULSE 80; TEMP 97.9
--- NOTE | 2018-09-05 14:37 | PN ---
Progress Note, Physician History of Present Illness: States he feels better Less cough/ Pleuritic chest pain Afebrile LFTs remain elevated MRCP done Result pending - Current Medication List Current Medications: Active Medications Acetaminophen (Tylenol -) 650 mg PO Q4H PRN PRN Reason: FEVER Last Admin: 09/03/18 22:40 Dose: 650 mg Acetaminophen (Tylenol -) 650 mg PO Q4H PRN PRN Reason: PAIN 1-3 Albuterol/Ipratropium (Duoneb -) 1 amp NEB Q6H PRN PRN Reason: SHORTNESS OF BREATH Enoxaparin Sodium (Lovenox -) 40 mg SQ DAILY [facility] Last Admin: 09/05/18 10:11 Dose: 40 mg Levofloxacin (Levaquin 750 Mg Premixed Ivpb -) 750 mg in 150 mls @ 100 mls/hr IVPB DAILY [facility]; Protocol Last Admin: 09/05/18 10:11 Dose: 100 mls/hr Sodium Chloride (Normal Saline -) 1,000 mls @ 75 mls/hr IV ASDIR [facility] Last Admin: 09/04/18 10:47 Dose: 75 mls/hr - Objective Vital Signs: Vital Signs Temperature 97.9 F 09/05/18 14:00 Pulse Rate 80 09/05/18 14:00 Respiratory Rate 18 09/05/18 14:00 Blood Pressure 109/74 09/05/18 14:00 O2 Sat by Pulse Oximetry (%) 97 09/05/18 09:00 Constitutional: Yes: No Distress Eyes: Yes: Conjunctiva Clear Cardiovascular: Yes: Regular Rate and Rhythm, S1, S2 Respiratory: Yes: CTA Bilaterally Gastrointestinal: Yes: Normal Bowel Sounds, Soft. No: Tenderness Edema: No Labs: CBC, BMP 09/04/18 05:30 09/04/18 05:30 INR, PTT INR 1.39 (0.83-1.09) H 09/05/18 05:30 Assessment/Plan JESSE community acquired v. atypical pneumonia\ clinically improved Elevated LFTs Repeat CXR May switch to po levaquin for additional 7d
[2018-09-05] MEDS ORDERED: FLU VACCINE QUAD 60 MCG/0.5 ML (MDV 18-19) IM ONE ×2 (14:45→17:00)
[2018-09-08 14:18] LABS: HBSAG SCREEN Negative (Negative); HEP A AB, IGM Negative (Negative); HEP B CORE AB, TOT Negative (Negative)
[2018-09-09 10:34] LABS: FIBROSIS SCORE. 0.14 (0.00-0.21); HCV ALPHA 2 MACRO CHART 100 mg/dL (110-276); HCV GGT 113 IU/L (0-65); NECROINFLAM. ACTIVITY GRADE A1-Minimal activity (.)
== END 2018-09-05 17:52 | disposition home or self-care (01) | DRG 139 ==
LOC: JER 04:47 → JERBED 09:05 → J5S 17:35 → J4W 18:13
PROVIDERS: ADMIT Family Medicine; ATTEND Family Medicine
DX: J18.9 Pneumonia, unspecified organism (principal); E87.1 Hypo-osmolality and hyponatremia; I45.10 Unspecified right bundle-branch block; R94.5 Abnormal results of liver function studies; R74.8 Abnormal levels of other serum enzymes; F17.210 Nicotine dependence, cigarettes, uncomplicated
CPT/HCPCS: 36415; 71045-TC-FY; 71046-TC-FY; 74183-TC; 76705-TC; 80048; 80053; 80076; 81003; 81015; 82150; 82172; 82550; 82553; 82977; 83010; 83690; 83883; 84460; 84484; 85025; 85610; 86308; 86664; 86704; 86705; 86706; 86708; 86803; 87040; 87086; 87340; 87350; 87804; 87899; 90688; 93005; 93010; 93306-TC; 99283-25; C1887; G0008; J7030

== ENCOUNTER 2019-05-12 00:41 | Emergency (ER) | payer OTHER | END 2019-05-12 04:37 | disposition home or self-care (01) | LOC: JER 00:41 ==